=== PATIENT | female | born 1955 | race African-American/Black ===

== ENCOUNTER → 2019-10-08 | Outpatient (CLI) | payer MEDICARE ==
[~2019-10-08] MED LIST: AMLODIPINE BESY10 MG PO; ATENOLOL50 MG PO; ATORVASTATIN CA20 MG PO; BREO ELLIPTA 11 EACH INH; GABAPENTIN300 MG PO; GLIPIZIDE-METF1 EAC1 PO; MONTELUKAST SOD10 MG PO; NORCO 5-325 TA1 EACH PO; SYMBICORT 16010.2 GM INH
[2019-10-08 14:23] LABS: BASOPHILS % 0.6 % (0.0-1.0); EOSINOPHILS # (AUTO) 0.1 (0.0-0.4); EOSINOPHILS % 2.6 % (0.0-6.0); HEMOGLOBIN 12.3 g/dL (12.0-16.0); LYMPHOCYTES # (AUTO) 1.9 (1.0-3.2); LYMPHOCYTES % 39.9 % (18.0-39.1); MEAN CORPUSCULAR HEMOGLOBIN 27.4 pg (28-32); MEAN CORPUSCULAR HGB CONC 31.5 g/dL (31-35); MEAN CORPUSCULAR VOLUME 86.9 fL (81-99); MONOCYTES # (AUTO) 0.5 (0.2-0.8); MONOCYTES % 10.1 % (4.4-11.3); NEUTROPHILS # (AUTO) 2.2 (2.1-6.9); NEUTROPHILS % 46.6 % (38.7-80.0); PLATELET COUNT 202 x10e3/uL (140-360); RED BLOOD COUNT 4.49 x10e6/uL (3.6-5.1); RED CELL DISTRIBUTION WIDTH 14.1 % (11.7-14.4)
== END ==
LOC: RAD 05:00 → EDSTATUS 10-11 06:30
PROVIDERS: ATTEND Physical Medicine & Rehabilitation Pain Medicine
DX: Z01.818 Encounter for other preprocedural examination (principal); M54.16 Radiculopathy, lumbar region
CPT/HCPCS: 36415; 85025; 93005

== ENCOUNTER → 2019-11-08 | Day surgery (SDC) | payer MEDICARE ==
[~2019-11-08] MED LIST changes: +DEXAMETHASONE SOD PHOS 10 MG/1 ML VIAL ONE; +FENTANYL CITRATE/PF 100MCG/2 ML INJ ONE; +IOPAMIDOL 200 MG/ML 20 ML VIAL IT ONE; +LIDOCAINE HCL 1% 30ML-PF VIAL ONE; +MIDAZOLAM HCL 2 MG/2 ML VIAL ONE; +PROPOFOL IV EMULSION 10 MG/ML 20 ML VIAL ONE
--- OUTSIDE RECORDS SUMMARY | 2019-11-08 05:19 | XMS REPORT ---
Author Author [facility] Address Unknown Phone Unavailable Care Team Providers Care Supervisor Wound Name Role Phone DONNY MARSH Unavailable Unavailable MAGED PIKE Unavailable Unavailable MOON COSTA Unavailable Unavailable Problems This patient has no known problems. Allergies, Adverse Reactions, Alerts This patient has no known allergies or adverse reactions. Medications This patient has no known medications. Encounters Start Date/Time End Date/Time Encounter Type Admission Type Attending Clinicians Care Facility Care Department Encounter ID 2016-03-11 04:30:00 2016-03-11 08:04:00 Outpatient [id number] Results Test Description Test Time Test Comments Text Results Atomic Results Result Comments MR, SPINE, LUMBAR, WITHOUT CONTRAST 2019-08-27 14:25:00 FINAL REPORT MR Lumbar spine without contrast CLINICAL HISTORY: lumbar radiculopathy TECHNIQUE: MRI of the lumbar spine utilizing sagittal T1, T2, STIR, axial T1 and T2-weighted sequences. COMPARISON: None FINDINGS: There is grade 1 anterolisthesis of L4-L5. The lumbar curvature and alignment is otherwise maintained. The lumbar vertebral body heights are preserved. There are edema type degenerative endplate signal changes at L5-S1. The lumbar marrow signal is otherwise preserved. The conus medullaris terminates at T12-L1 without signal abnormality or mass effect. At L5-S1, there is a broad-based disc osteophyte complex with bilateral facet arthrosis including joint effusions. There is effacement of the bilateral subarticular recesses, with otherwise mild central canal stenosis. There is severe right foraminal stenosis. There is mild to moderate left foraminal stenosis. At L4-L5, there is a broad-based disc bulge and facet arthrosis without significant central canal stenosis. There is bilateral foraminal stenosis. At L3-L4, there is a mild broad-based disc bulge without central canal stenosis. There is mild bilateral inferior foraminal narrowing. At L2-L3, there is no central canal or neural foraminal stenosis. At L1-L2, there is no central canal or neural foraminal stenosis. At T12-L1, there is no central canal or neural foraminal stenosis. The visualized paraspinal and retroperitoneal soft tissues are grossly unremarkable. IMPRESSION: At L5-S1, there is bilateral subarticular recess effacement with mild overall central canal stenosis. There is severe right and mild to moderate left foraminal stenosis. Other lumbar degenerative changes as separately detailed above. Signed: Jessica Escobar MDReport Verified Date/Time: 08/27/2019 14:25:35 Reading Location: [facility] B1 C013V Neuro Reading Room , DIGITAL, MAMMO, SCREENING, BILATERAL INCLUDING CAD 2019-05-22 09:21:00 Diagnostic workup per radiologist?->YesReason for Exam:->Z12.31 #[id number] - MM, DIGITAL, MAMMO, SCREENING, BILATERAL INCLUDING CADBILATERAL DIGITAL SCREENING MAMMOGRAM WITH CAD: 05/22/2019Comparison is made to exams dated: 05/08/2018 mammogram - [facility] and 05/06/2017 mammogram - [facility]. The tissue of both breasts is heterogeneously dense. This may lower the sensitivity of mammography. Current study was also evaluated with a Computer Aided Detection (CAD) system. Benign appearing calcifications are present in the right breast. There is a post-surgical scar associated with the left breast. Examination indicates an intramammary lymph node in the right breast as well as a biopsy marker in the left breast. No significant masses, calcifications, or other findings are seen in either breast. IMPRESSION: BENIGNThere is no mammographic evidence of malignancy. A 1 year screening mammogram is recommended. Colton Grande M.D. pth/penrad:05/22/2019 09:21:14 Normal Exam Mammogram BI-RADS: 2 Benign G0202 , DIGITAL, MAMMO, SCREENING, BILATERAL INCLUDING CAD 2018-05-08 12:36:00 Reason for Exam:->ENOUNTER FOR SCREENING MAMMOGRAM FOR MALIGNANT NEOPLASM OF BREAST #[id number] - MM, DIGITAL, MAMMO, SCREENING, BILATERAL INCLUDING CADBILATERAL DIGITAL SCREENING MAMMOGRAM WITH CAD: 05/08/2018Comparison is made to exams dated: 05/06/2017 mammogram - [facility] and 04/21/2016 mammogram. The tissue of both breasts is heterogeneously dense. This may lower the sensitivity of mammography. Current study was also evaluated with a Computer Aided Detection (CAD) system. Benign appearing vascular calcifications and benign appearing calcifications are present in the right breast. Examination indicates a biopsy marker in the left breast. No significant masses, calcifications, or other findings are seen in either breast. IMPRESSION: BENIGNThere is no mammographic evidence of malignancy. A 1 year screening mammogram is recommended. Colton Grande M.D. pth/penrad:05/08/2018 12:36:41 Normal Exam Mammogram BI-RADS: 2 Benign G0202 , SHOULDER, COMPLETE (MIN 2 VIEWS), RIGHT 2018-04-24 09:58:00 Reason for Exam:->m25.511 FINAL REPORT Right shoulder. MEDICAL HISTORY: Pain. COMPARISON STUDY: None available. FINDINGS: Three views of the right shoulder demonstrate no evidence of fracture, malalignment or effusion. Mild degenerative changes are seen. Signed: Cooper Mata MDReport Verified Date/Time: 04/24/2018 09:58:01 Reading Location: [facility] Radiology Reading Room Electronically sig bailey by: COOPER MATA M.D. on 04/24/2018 09:58 AM RAD, FINGERS, MIN 2 VIEWS, LEFT 2018-03-24 16:00:00 Reason for exam:->LACERATION FINAL REPORT TECHNIQUE: Frontal, lateral, and oblique radiographs of the left hand dated 03/24/2018 HISTORY: Laceration COMPARISON: None. FINDINGS:No fracture or dislocation. Bones are normal in density. Mild degenerative changes of the radiocarpal joint are visualized. No bone erosion or soft tissue nodule seen. No radiodense foreign body or subcutaneous emphysema. IMPRESSION:No fracture or dislocation. Mild degenerative changes. Signed: Sang Espinozaeport Verified Date/Time: 03/24/2018 16:00:21 Reading Location: [facility] Radiology Reading Room C METABOLIC PANEL 2017-12-13 23:20:00 SODIUM (BEAKER) (test asef=231) 141 meq/L 136-145 POTASSIUM (BEAKER) (test yjpw=698) 3.6 meq/L 3.5-5.1 CHLORIDE (BEAKER) (test pvbu=544) 109 meq/L 98-107 CO2 (BEAKER) (test bmix=529) 22 meq/L 22-29 BLOOD UREA NITROGEN (BEAKER) (test qcum=911) 11 mg/dL 7-21 CREATININE (BEAKER) (test txhv=137) 0.76 mg/dL 0.57-1.25 GLUCOSE RANDOM (BEAKER) (test phnf=473) 226 mg/dL 70-105 CALCIUM (BEAKER) (test mhmv=954) 9.7 mg/dL 8.4-10.2 EGFR (BEAKER) (test aijk=4424) 94 mL/min/1.73 sq m ESTIMATED GFR IS NOT ACCURATE CREATININE CLEARANCE IN PREDICTING GLOMERULAR FILTRATION RATE. ESTIMATED GFR IS NOT APPLICABLE FOR DIALYSIS PATIENTS. CBC W/PLT COUNT & AUTO [id number] 23:03:00* Test Item Value Reference Range Comments WHITE BLOOD CELL COUNT (BEAKER) (test jise=592) 5.6 K/ L 3.5-10.5 RED BLOOD CELL COUNT (BEAKER) (test nyae=215) 4.55 M/ L 3.93-5.22 HEMOGLOBIN (BEAKER) (test ijco=159) 12.9 GM/DL 11.2-15.7 HEMATOCRIT (BEAKER) (test cdms=997) 40.2 % 34.1-44.9 MEAN CORPUSCULAR VOLUME (BEAKER) (test hkbi=835) 88.4 fL 79.4-94.8 MEAN CORPUSCULAR HEMOGLOBIN (BEAKER) (test apvt=702) 28.4 pg 25.6-32.2 MEAN CORPUSCULAR HEMOGLOBIN CONC (BEAKER) (test oeam=163) 32.1 GM/DL 32.2-35.5 RED CELL DISTRIBUTION WIDTH (BEAKER) (test epsd=071) 13.7 % 11.7-14.4 PLATELET COUNT (BEAKER) (test lyia=963) 200 K/CU MM 150-450 MEAN PLATELET VOLUME (BEAKER) (test fxtn=525) 11.3 fL 9.4-12.3 NUCLEATED RED BLOOD CELLS (BEAKER) (test ztxu=127) 0 /100 WBC 0-0 NEUTROPHILS RELATIVE PERCENT (BEAKER) (test kkvl=209) 72 % LYMPHOCYTES RELATIVE PERCENT (BEAKER) (test vblf=277) 21 % MONOCYTES RELATIVE PERCENT (BEAKER) (test pdcb=040) 6 % EOSINOPHILS RELATIVE PERCENT (BEAKER) (test ugpk=596) 1 % BASOPHILS RELATIVE PERCENT (BEAKER) (test nevs=595) 0 % NEUTROPHILS ABSOLUTE COUNT (BEAKER) (test xgde=976) 4.05 K/ L 1.56-6.13 LYMPHOCYTES ABSOLUTE COUNT (BEAKER) (test hiol=183) 1.19 K/ L 1.18-3.74 MONOCYTES ABSOLUTE COUNT (BEAKER) (test mbls=718) 0.32 K/ L 0.24-0.36 EOSINOPHILS ABSOLUTE COUNT (BEAKER) (test dhhr=877) 0.04 K/ L 0.04-0.36 BASOPHILS ABSOLUTE COUNT (BEAKER) (test tnar=142) 0.02 K/ L 0.01-0.08 IMMATURE GRANULOCYTES-RELATIVE PERCENT (BEAKER) (test usft=5651) 0 % 0-1 MM, DIGITAL, MAMMO, SCREENING, BILATERAL INCLUDING [id number] 08:14:00Reason for Exam:->screening mammogramN#: [id number] - MM, DIGITAL, MAMMO, SCREENING, BILATERAL INCLUDING CADBILATERAL DIGITAL SCREENING MAMMOGRAM 3D/2D WITH CAD: 05/06/2017CLINICAL: Routine screening mammogram. Comparison is made to exams dated: 04/21/2016 mammogram and 11/29/2014 mammogram. The tissue of both breasts is heterogeneously dense. This may lower the sensitivity of mammography. Tomosynthesis 3D imaging of the breasts was also performed. Current study was also evaluated with a Computer Aided Detection (CAD) system. There is a biopsy marker in the left breast. No significant masses, calcifications, or other findings are seen in either breast. There has been no significant interval change. IMPRESSION: BENIGNThere is no mammographic evidence of malignancy. A 1 year screening mammogram is recommended. Clement Duarte M.D. ds/:05/09/2017 08:14:22 Normal BiRad 1-2 Mammogram BI-RADS: 2 Benign G0202 UE [id number] 09:34:00Surgical Pathology Report Case: [id number] Authorizing Provider: Thuan Pike M D Ordering Provider: Thuan Pike MD Ordering Location: [facility] Collected: 10/06/2016 1135 SERVICES Pathologist: Korina Albert, Received: 10/06/2016 1152 MD Specimen: Adr enal, Right, WITH MASS ADRENAL GLAND, RIGHT, ADRENALECTOMY: - ADRENAL CORTICAL ADENOMA/[id number]; 8 8313Renal massAdrenal right with massThe specimen is received in fixative and de signated as "adrenal, right", consists of an adrenal gland (44 gm, 6.5 x 4.0 x 3 .5 cm). Sectioning of the specimen reveals a well-circumscribed nodule (5.5 x 3. 5 x 3.2 cm). The cut surface is yellow-ritter and slightly lobulated. The remain benton of the adrenal tissue is thin and unremarkable. A1-A4, service center representative sectio ns of the nodule; A5, service center representative section of uninvolved adrenal gland. 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 There are areas of increased fibrosis and hyalinization within the tumor (that stain negative for Congo Red). Minimal nuclear pleomorphism is present with no increase in mitotic activity and no are as of necrosis.The following special studies were performed on this case and the interpretation is incorporated in the diagnostic report above:The following spe cial studies were performed on this case with appropriate and reactive controls and the interpretation is incorporated in the diagnostic report above: Congo red (negative)POCT-GLUCOSE [id number] 06:16:00* Test Item Value Reference Range Comments POC-GLUCOSE METER (BEAKER) (test ulhj=2848) 101 mg/dL 70-110 TESTED AT [place] [address] POCT-GLUCOSE [id number] 22:59:00* Test Item Value Reference Range Comments POC-GLUCOSE METER (BEAKER) (test ehee=1261) 137 mg/dL 70-110 TESTED AT [place] [address] POCT-GLUCOSE [id number] 19:18:00* Test Item Value Reference Range Comments POC-GLUCOSE METER (BEAKER) (test rwnp=6027) 200 mg/dL 70-110 TESTED AT [place] [address] POCT-GLUCOSE [id number] 18:06:00* Test Item Value Reference Range Comments POC-GLUCOSE METER (BEAKER) (test swlw=4289) 241 mg/dL 70-110 TESTED AT [place] [address] POCT-GLUCOSE [id number] 17:57:00* Test Item Value Reference Range Comments POC-GLUCOSE METER (BEAKER) (test wpki=1451) 302 mg/dL 70-110 TESTED AT [place] [address] POCT-GLUCOSE [id number] 07:50:00* Test Item Value Reference Range Comments POC-GLUCOSE METER (BEAKER) (test nzrg=7667) 121 mg/dL 70-110 TESTED AT [place] [address] BASIC METABOLIC [id number] 05:52:00* Test Item Value Reference Range Comments SODIUM (BEAKER) (test farf=545) 137 meq/L 135-148 POTASSIUM (BEAKER) (test jxry=976) 4.5 meq/L 3.6-5.5 CHLORIDE (BEAKER) (test vswr=158) 105 meq/L 98-106 CO2 (BEAKER) (test njdx=114) 26 meq/L 20-29 BLOOD UREA NITROGEN (BEAKER) (test xvgj=494) 5 mg/dL 10-26 CREATININE (BEAKER) (test qkvj=434) 0.70 mg/dL 0.50-1.20 GLUCOSE RANDOM (BEAKER) (test avew=237) 127 mg/dL 70-110 CALCIUM (BEAKER) (test qyzb=459) 8.7 mg/dL 8.5-10.5 EGFR (BEAKER) (test qecj=3338) 104 mL/min/1.73 sq m ESTIMATED GFR IS NOT ACCURATE CREATININE CLEARANCE IN PREDICTING GLOMERULAR FILTRATION RATE. ESTIMATED GFR IS NOT APPLICABLE FOR DIALYSIS PATIENTS. CBC W/PLT COUNT & AUTO [id number] 05:41:00* Test Item Value Reference Range Comments WHITE BLOOD CELL COUNT (BEAKER) (test pevv=539) 7.2 K/ L 4.0-10.0 RED BLOOD CELL COUNT (BEAKER) (test pjwi=745) 4.33 M/ L 4.00-5.00 HEMOGLOBIN (BEAKER) (test uzdc=960) 11.8 GM/DL 12.0-15.0 HEMATOCRIT (BEAKER) (test lxae=800) 36.3 % 36.0-45.0 MEAN CORPUSCULAR VOLUME (BEAKER) (test zkma=732) 83.8 fL 82.0-99.0 MEAN CORPUSCULAR HEMOGLOBIN (BEAKER) (test eskl=930) 27.2 pg 27.0-33.0 MEAN CORPUSCULAR HEMOGLOBIN CONC (BEAKER) (test iads=896) 32.4 GM/DL 32.0-36.0 RED CELL DISTRIBUTION WIDTH (BEAKER) (test sitp=651) 14.6 % 10.3-14.2 PLATELET COUNT (BEAKER) (test pieg=324) 202 K/CU MM 150-430 MEAN PLATELET VOLUME (BEAKER) (test aeou=929) 9.4 fL 6.5-10.5 NUCLEATED RED BLOOD CELLS (BEAKER) (test xasd=376) 0 /100 WBC 0-0 NEUTROPHILS RELATIVE PERCENT (BEAKER) (test lwsm=069) 68 % LYMPHOCYTES RELATIVE PERCENT (BEAKER) (test msko=207) 23 % MONOCYTES RELATIVE PERCENT (BEAKER) (test wijl=328) 8 % EOSINOPHILS RELATIVE PERCENT (BEAKER) (test xacd=956) 1 % BASOPHILS RELATIVE PERCENT (BEAKER) (test hvjv=810) 0 % NEUTROPHILS ABSOLUTE COUNT (BEAKER) (test msds=436) 4.90 K/ L 1.80-8.00 LYMPHOCYTES ABSOLUTE COUNT (BEAKER) (test ekmg=877) 1.60 K/ L 1.48-4.50 MONOCYTES ABSOLUTE COUNT (BEAKER) (test oagg=441) 0.60 K/ L 0.00-1.30 EOSINOPHILS ABSOLUTE COUNT (BEAKER) (test wdte=887) 0.00 K/ L 0.00-0.50 BASOPHILS ABSOLUTE COUNT (BEAKER) (test norm=957) 0.00 K/ L 0.00-0.20 POCT-GLUCOSE [id number] 20:41:00* Test Item Value Reference Range Comments POC-GLUCOSE METER (BEAKER) (test kyhp=2347) 205 mg/dL 70-110 TESTED AT [address] [address] POCT-GLUCOSE [id number] 16:30:00* Test Item Value Reference Range Comments POC-GLUCOSE METER ([facility]) (test mqen=2833) 213 mg/dL 70-110 TESTED AT [address] [address] BASIC METABOLIC [id number] 13:41:00* Test Item Value Reference Range Comments SODIUM (BEAKER) (test dwns=846) 137 meq/L 135-148 POTASSIUM (BEAKER) (test soqb=878) 3.9 meq/L 3.6-5.5 CHLORIDE (BEAKER) (test usik=525) 105 meq/L 98-106 CO2 (BEAKER) (test cyqs=418) 25 meq/L 20-29 BLOOD UREA NITROGEN (BEAKER) (test hsid=869) 6 mg/dL 10-26 CREATININE (BEAKER) (test pdzk=624) 0.70 mg/dL 0.50-1.20 GLUCOSE RANDOM (BEAKER) (test txte=994) 228 mg/dL 70-110 CALCIUM (BEAKER) (test hfau=680) 8.7 mg/dL 8.5-10.5 EGFR (BEAKER) (test uxip=1359) 104 mL/min/1.73 sq m ESTIMATED GFR IS NOT ACCURATE CREATININE CLEARANCE IN PREDICTING GLOMERULAR FILTRATION RATE. ESTIMATED GFR IS NOT APPLICABLE FOR DIALYSIS PATIENTS. HEMOGLOBIN AND [id number] 13:24:00* Test Item Value Reference Range Comments HEMOGLOBIN (BEAKER) (test rqxm=999) 12.4 GM/DL 12.0-15.0 HEMATOCRIT (BEAKER) (test roxr=426) 39.1 % 36.0-45.0 POCT-GLUCOSE [id number] 12:48:00* Test Item Value Reference Range Comments POC-GLUCOSE METER (BEAKER) (test efct=3569) 214 mg/dL 70-110 TESTED AT [address] [address] POCT-GLUCOSE [id number] 06:28:00* Test Item Value Reference Range Comments POC-GLUCOSE METER (BEAKER) (test boxa=8703) 164 mg/dL 70-110 TESTED AT [address] [address] URINE [id number] 09:43:00* Test Item Value Reference Range Comments CULTURE (BEAKER) (test gugt=6313) <10,000 col/mL skin janiya URINALYSIS W/ [id number] 10:05:00* Test Item Value Reference Range Comments COLOR (BEAKER) (test gmho=829) Yellow CLARITY (BEAKER) (test bijh=614) Clear SPECIFIC GRAVITY UA (BEAKER) (test rotb=669) 1.025 1.001-1.035 PH UA (BEAKER) (test plct=048) 5.5 5.0-8.0 PROTEIN UA (BEAKER) (test qwcl=153) Negative Negative GLUCOSE UA (BEAKER) (test guxi=174) Negative Negative KETONES UA (BEAKER) (test dwek=142) Negative Negative BILIRUBIN UA (BEAKER) (test rygo=503) Negative Negative BLOOD UA (BEAKER) (test fpbt=373) Trace Negative NITRITE UA (BEAKER) (test ocfl=679) Negative Negative LEUKOCYTE ESTERASE UA (BEAKER) (test wdps=410) Negative Negative UROBILINOGEN UA (BEAKER) (test uthv=362) 0.2 mg/dL 0.2-1.0 BACTERIA (BEAKER) (test pxul=845) Occasional MUCUS (BEAKER) (test mfnf=4014) Few RBC UA-MANUAL (BEAKER) (test rbns=0693) <5 /HPF WBC UA-MANUAL (BEAKER) (test bjcd=3913) <5 /HPF SQUAMOUS EPITHELIAL MANUAL (BEAKER) (test rhhq=0648) <5 /HPF SOURCE(BEAKER) (test awvb=2394) COMPREHENSIVE METABOLIC [id number] 09:56:00* Test Item Value Reference Range Comments TOTAL PROTEIN (BEAKER) (test oxao=066) 8.4 gm/dL 6.0-8.5 ALBUMIN (BEAKER) (test ccjj=4546) 4.7 g/dL 3.5-5.0 ALKALINE PHOSPHATASE (BEAKER) (test nqvp=940) 58 U/L 30-115 BILIRUBIN TOTAL (BEAKER) (test vhln=578) 0.4 mg/dL 0.1-1.2 SODIUM (BEAKER) (test zruo=539) 141 meq/L 135-148 POTASSIUM (BEAKER) (test milt=275) 4.4 meq/L 3.6-5.5 CHLORIDE (BEAKER) (test pmwh=969) 102 meq/L 98-106 CO2 (BEAKER) (test bctk=202) 28 meq/L 20-29 BLOOD UREA NITROGEN (BEAKER) (test nbfo=930) 11 mg/dL 10-26 CREATININE (BEAKER) (test hdcc=542) 0.70 mg/dL 0.50-1.20 GLUCOSE RANDOM (BEAKER) (test rfwm=384) 125 mg/dL 70-110 CALCIUM (BEAKER) (test vnqe=794) 10.6 mg/dL 8.5-10.5 AST (SGOT) (BEAKER) (test bosd=082) 17 U/L 5-40 ALT (SGPT) (BEAKER) (test uloh=337) 16 U/L 5-50 EGFR (BEAKER) (test gsbq=8974) 104 mL/min/1.73 sq m ESTIMATED GFR IS NOT ACCURATE CREATININE CLEARANCE IN PREDICTING GLOMERULAR FILTRATION RATE. ESTIMATED GFR IS NOT APPLICABLE FOR DIALYSIS PATIENTS. PT/[id number] 09:52:00* Test Item Value Reference Range Comments PROTIME (BEAKER) (test wmoa=866) 11.2 seconds 9.3-12.0 INR (BEAKER) (test kyaa=340) 1.0 <=5.9 PARTIAL THROMBOPLASTIN TIME (BEAKER) (test uslf=410) 29.2 seconds 23.0-35.0 RECOMMENDED COUMADIN/WARFARIN INR THERAPY RANGESSTANDARD DOSE: 2.0 - 3.0 Inclu pedrito: PROPHYLAXIS for venous thrombosis, systemic embolization; TREATMENT for roxana ous thrombosis and/or pulmonary embolus.HIGH RISK: Target INR is 2.5-3.5 for pat ients with mechanical heart valves.CBC W/PLT COUNT & AUTO [id number] 09:43:00* Test Item Value Reference Range Comments WHITE BLOOD CELL COUNT (BEAKER) (test nken=141) 5.9 K/ L 4.0-10.0 RED BLOOD CELL COUNT (BEAKER) (test fukq=775) 4.96 M/ L 4.00-5.00 HEMOGLOBIN (BEAKER) (test gujm=326) 13.4 GM/DL 12.0-15.0 HEMATOCRIT (BEAKER) (test mqjg=201) 41.5 % 36.0-45.0 MEAN CORPUSCULAR VOLUME (BEAKER) (test akte=501) 83.6 fL 82.0-99.0 MEAN CORPUSCULAR HEMOGLOBIN (BEAKER) (test vdmq=609) 27.1 pg 27.0-33.0 MEAN CORPUSCULAR HEMOGLOBIN CONC (BEAKER) (test ymii=022) 32.4 GM/DL 32.0-36.0 RED CELL DISTRIBUTION WIDTH (BEAKER) (test hovz=989) 14.4 % 10.3-14.2 PLATELET COUNT (BEAKER) (test czxw=024) 217 K/CU MM 150-430 MEAN PLATELET VOLUME (BEAKER) (test gvft=153) 9.6 fL 6.5-10.5 NUCLEATED RED BLOOD CELLS (BEAKER) (test begr=652) 0 /100 WBC 0-0 NEUTROPHILS RELATIVE PERCENT (BEAKER) (test sobo=906) 48 % LYMPHOCYTES RELATIVE PERCENT (BEAKER) (test quhr=643) 41 % MONOCYTES RELATIVE PERCENT (BEAKER) (test sgxo=420) 8 % EOSINOPHILS RELATIVE PERCENT (BEAKER) (test pezn=536) 3 % BASOPHILS RELATIVE PERCENT (BEAKER) (test xfaw=245) 1 % NEUTROPHILS ABSOLUTE COUNT (BEAKER) (test ahtv=020) 2.80 K/ L 1.80-8.00 LYMPHOCYTES ABSOLUTE COUNT (BEAKER) (test wrok=092) 2.40 K/ L 1.48-4.50 MONOCYTES ABSOLUTE COUNT (BEAKER) (test ejuw=085) 0.50 K/ L 0.00-1.30 EOSINOPHILS ABSOLUTE COUNT (BEAKER) (test ppxd=116) 0.20 K/ L 0.00-0.50 BASOPHILS ABSOLUTE COUNT (BEAKER) (test kgdk=264) 0.00 K/ L 0.00-0.20
[2019-11-08 07:45] VITALS: BP 119/63
== END | disposition home or self-care (01) ==
LOC: OR 05:17
PROVIDERS: ATTEND Physical Medicine & Rehabilitation Pain Medicine
DX: M54.16 Radiculopathy, lumbar region (principal); I10 Essential (primary) hypertension; J45.909 Unspecified asthma, uncomplicated; E11.9 Type 2 diabetes mellitus without complications; R00.1 Bradycardia, unspecified; F41.9 Anxiety disorder, unspecified; Z79.84 Long term (current) use of oral hypoglycemic drugs; Z86.19 Personal history of other infectious and parasitic diseases
CPT/HCPCS: 36415; 64483; 64484 ×2; 76000; 82948; J1100; J2001; J2250; J2704; J3010; Q9967